=== PATIENT | male | born 1985 | race Caucasian/White ===

== ENCOUNTER 2021-03-18 04:34 | Inpatient (IN) ==
[2021-03-18 05:52] LABS: Acetaminophen < 10 mcg/mL (10-20); BUN/Creatinine Ratio 14 (6-26); Blood Urea Nitrogen 15 mg/dL (6-20); Calcium 9.1 mg/dL (8.6-10.3); Carbon Dioxide 27 mEq/L (23-29); Chloride 103 mEq/L (98-107); Chol/HDL Ratio 2.8 (0-4.9); Cholesterol 105 mg/dL (< 200); Ethanol < 10 mg/dL (Less than 10); Glucose 78 mg/dL (70-105); HDL Cholesterol 37 mg/dL (40-59); LDL Cholesterol,Calculated 55 mg/dL (< 100); Osmolality,Calculated 288 (280-300); Potassium 3.4 mEq/L (3.5-5.1); Salicylate < 2.5 mg/dL (15.0-30.0); Sodium 139 mEq/L (136-145); Triglycerides 64 mg/dL (< 150); eGFR For African Americans > 60 (> 60); eGFR For Non-African Americans > 60 (> 60)
[2021-03-18 06:26] LABS: Bacteria,Urine Few per hpf (None-Few); Bilirubin,Urine Negative (Negative); Blood,Urine Negative (Negative); Clarity,Urine Clear (Clear); Color,Urine Light-Yellow (Yellow); Glucose,Urine (UA) Normal (Normal); Ketones,Urine 60 mg/dL (Negative); Leukocyte Esterase,Urine Large (Negative); Mucus,Urine Few per lpf (None-Few); Nitrite,Urine Negative (Negative); Protein,Urine Negative (Neg-Trace); RBC,Urine 0-3 per hpf (0-3); Specific Gravity,Urine 1.014 (1.010-1.025); Urobilinogen,Urine Normal (Normal); WBC,Urine 30-50 per hpf (0-3)
[2021-03-18 07:55] LABS: Amphetamine Screen,Urine Positive ng/mL (Cutoff=1000); Barbiturate Screen,Urine Negative ng/mL (Cutoff=200)
[2021-03-18 07:56] LABS: Benzodiazepines Screen,Urine Negative ng/mL (Cutoff=300); Cannabinoid Screen,Urine Negative ng/mL (Cutoff = 50); Cocaine Screen,Urine Negative ng/mL (Cutoff= 300); Opiate Screen,Urine Negative ng/mL (Cutoff=300); Phencyclidine Screen,Urine Negative ng/mL (Cutoff=25)
[2021-03-18 08:38] LABS: Basophils % 0.3 %; Eosinophils # 0.1 K/mcL (0.0-0.6); Eosinophils % 0.9 %; Hematocrit 42.9 % (37.5-50.1); Hemoglobin 14.6 g/dL (12.9-16.9); Immature Granulocytes % 0.3 % (0-4); Lymphocytes # 2.5 K/mcL (0.6-4.6); Lymphocytes % 24.3 %; Mean Corpuscular Hemoglobin 30.3 pg (28.0-33.3); Mean Platelet Volume 9.3 fL (9.4-12.4); Monocytes # 1.8 K/mcL (0.0-1.3); Monocytes % 17.7 %; Neutrophils # 5.8 K/mcL (1.6-8.9); Platelet Count 244 K/mcL (140-400); Red Blood Count 4.82 M/mcL (4.19-5.50); Segmented Neutrophils % 56.5 %; White Blood Count 10.3 K/mcL (4.3-11.1)
[2021-03-18 12:49] LABS: Estimated Average Glucose 97 mg/dl
[2021-03-18 19:27] LABS: Influenza A PCR Negative (Negative); Influenza B PCR Negative (Negative); Resp. Syncytial Virus PCR Negative (Negative)
[2021-03-18 19:28] LABS: SARS-CoV-2 by PCR (In House) Negative (Negative)
[2021-03-18] MEDS ORDERED: *HR* LORazepam 2 MG/ML VIAL IM PRN (19:51)
[2021-03-18] MEDS ORDERED: Haloperidol Lactate 5 MG/ML VIAL IM PRN (19:51)
[2021-03-18] MEDS ORDERED: Ibuprofen 600 MG TABLET PO PRN (21:40)
[2021-03-18] MEDS: OLANZapine 10 MG TAB.RAPDIS PO SCH (21:41)
[2021-03-18] MEDS: traZODone 50 MG TABLET PO PRN (21:41)
[2021-03-18] MEDS: hydrOXYzine pamoate 25 MG CAPSULE PO PRN (21:41)
[2021-03-19] MEDS: OLANZapine 10 MG TAB.RAPDIS PO SCH (21:19)
[2021-03-19] MEDS: hydrOXYzine pamoate 25 MG CAPSULE PO PRN (21:19)
[2021-03-19] MEDS: traZODone 50 MG TABLET PO PRN (21:19)
[2021-03-20] MEDS: hydrOXYzine pamoate 25 MG CAPSULE PO PRN ×2 (16:45→20:16)
[2021-03-20] MEDS: OLANZapine 5 MG TAB.RAPDIS PO SCH (17:17)
[2021-03-20] MEDS: OLANZapine 10 MG TAB.RAPDIS PO SCH (20:16)
[2021-03-20] MEDS: traZODone 50 MG TABLET PO PRN (20:16)
[2021-03-21] MEDS: hydrOXYzine pamoate 25 MG CAPSULE PO PRN ×2 (16:33→20:20)
[2021-03-21] MEDS: OLANZapine 5 MG TAB.RAPDIS PO SCH (17:31)
[2021-03-21] MEDS: OLANZapine 10 MG TAB.RAPDIS PO SCH (20:20)
[2021-03-21] MEDS: traZODone 50 MG TABLET PO PRN (20:20)
[2021-03-21] MEDS: haloperidoL 5 MG TABLET PO PRN (21:00)
[2021-03-21] MEDS: *HR* LORazepam 1 MG TABLET PO PRN (21:00)
[2021-03-22] MEDS ORDERED: Mag Hydrox/Al Hydrox/Simeth 30 ML UDC PO PRN (12:38)
[2021-03-22] MEDS ORDERED: MOM Conc 10 ML UD.LIQ PO PRN (12:38)
[2021-03-22] MEDS: hydrOXYzine pamoate 25 MG CAPSULE PO PRN ×2 (15:09→20:16)
[2021-03-22] MEDS: traZODone 50 MG TABLET PO PRN (20:16)
[2021-03-22 20:51] VITALS: O2SAT 97
[2021-03-22] MEDS ORDERED: OLANZapine 10 MG TAB.RAPDIS PO SCH (21:00)
[2021-03-22] MEDS: haloperidoL 5 MG TABLET PO PRN (22:45)
[2021-03-22] MEDS: *HR* LORazepam 1 MG TABLET PO PRN (22:45)
[2021-03-23 09:24] VITALS: BP 110/83; PULSE 88; TEMP 98.2
== END 2021-03-23 17:30 | disposition home or self-care (01) | DRG 776 ==
LOC: EMEROOARM 04:34 → 1ANU 20:24
PROVIDERS: ADMIT Psychiatry & Neurology Psychiatry; ATTEND Psychiatry & Neurology Psychiatry